=== PATIENT | male | born 1960 | race Caucasian/White ===

== ENCOUNTER 2020-06-01 10:55 | Emergency (ER) | payer BC, SELFPAY ==
--- NOTE | ~2020-06-01 | XR_ITS ---
EXAMINATION: XR hand LT min 3V DATE: 06/01/2020 11:26 INDICATION: Left hand injury. TECHNIQUE: 3 views of left hand were obtained. COMPARISON: Left hand radiographs 08/15/2011 FINDINGS: Bone alignment is normal. There is an old healed fracture of first distal phalanx. There is amputation at the oseas of the third and fourth distal phalanges. There is mild osteoarthritis of se cond, and fifth distal interphalangeal joints. IMPRESSION: 1. 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 Reviewed, dictated and finalized at location B.
[2020-06-01 11:02] VITALS: BP 171/102; PULSE 110; RESP 20; TEMP 36.2; O2SAT 100
[2020-06-01] MEDS: HYDROcodone/acetaminophen (*CRX) 5-325 MG TABLET 1 TAB PO (11:13)
--- NOTE | 2020-06-01 11:21 | ED.UPPEXIN ---
HPI - Extremity Injury (Upper) General Chief Complaint: Extremity Injury, Upper <Swetha Haines PA-C - Last Filed: 06/01/20 15:42> Stated Complaint: finger lac <HINA Lobo Last Filed: 06/01/20 15:42> Time Seen by Provider: 06/01/20 11:07 <Swetha Haines PA-C - Last Filed: 06/01/20 15:42> Source: patient <HINA Lobo Last Filed: 06/01/20 15:42> Mode of arrival: ambulatory <HINA Lobo Last Filed: 06/01/20 15:42> Limitations: no limitations <HINA Lobo Last Filed: 06/01/20 15:42> History of Present Illness HPI narrative: This is a 59-year-old [id number] male that presents to the emergency department for left hand injury sustained just prior to arrival. Reports he was using a table saw and accidentally cut the tip of his left third and fourth fingers off. Reports pain and bleeding to the area. Denies decreased ROM or numbness. <HINA Lobo Last Filed: 06/01/20 15:42> Related Data Allergies/Adverse Reactions: Allergies Allergy/AdvReac Type Severity Reaction Status Date / Time No Known Allergies Allergy Verified 06/01/20 11:05 <Swetha Haines PA-C - Last Filed: 06/01/20 15:42> Review of Systems Review of Systems: Narrative: CONSTITUTIONAL: Denies fever SKIN: Reports laceration MUSCULOSKELETAL: Reports joint pain, and myalgia. NEUROLOGIC: Denies numbness <HINA Lobo Last Filed: 06/01/20 15:42> All systems reviewed & are unremarkable except as noted in HPI and below <HINA Lobo Last Filed: 06/01/20 15:42> [facility] Social History Social History: Social History Smoking status: Never smoker Alcohol intake: current <HINA Lobo Last Filed: 06/01/20 15:42> Exam Narrative: Exam Narrative: GENERAL: Well-appearing, well-nourished, and in mild acute distress due to pain. HEAD: Normocephalic, atraumatic. EYES: EOMI. EXTREMITIES: Normal range of motion. Left third and fourth fingers with partial amputation of the distal phalanx, partial involvement of the nails. Normal sensation SKIN: Warm, dry, no rash. NEURO: No focal deficits. Alert and oriented x3. PSYCH: Normal mood and affect <Swetha Haines PA-C - Last Filed: 06/01/20 15:42> Course JET DYEING MACHINE OPERATOR/PA Physician Supervision Patient was assessed for left hand injury, using a saw and lacerated distal third and fourth phalanxes. Pt hyperventilating at time of assessment. Patient has open tuft injuries to distal rd and 4th phalanxes. Otherwise neurovascularly intact. Patient underwent digital block as well as IV analgesia. Dr. Diaz came to the emergency department and evaluated the patient and recommended approximation of these and follow-up in his office. For this patient encounter, I reviewed the JET DYEING MACHINE OPERATOR or PA documentation, treatment plan, and medical decision making; and I had [id number] time with this patient. <Caitlyn Ellis MD - Last Filed: 06/01/20 15:48> Consultations Consultation #1: Dr. Diaz did come to the ER to check wound. Recommended approximating flaps as well as possible with sutures. <Swetha Haines PA-C - Last Filed: 06/01/20 15:42> Date: 06/01/20 <HINA Lobo Last Filed: 06/01/20 15:42> Time: 15:40 <HINA Lobo Last Filed: 06/01/20 15:42> Vital Signs Vital signs: Vital Signs Temperature 36.2 C L 06/01/20 11:02 Pulse Rate 110 H 06/01/20 11:02 Respiratory Rate 20 06/01/20 11:02 Blood Pressure 171/102 H 06/01/20 11:02 Pulse Oximetry 100 06/01/20 11:02 Temperature 36.2 C L 06/01/20 11:02 Pulse Rate 76 06/01/20 15:20 Respiratory Rate 18 06/01/20 15:20 Blood Pressure 178/85 H 06/01/20 15:20 Pulse Oximetry 98 06/01/20 15:20 <Swetha Haines PA-C - Last Filed: 06/01/20 15:42> Vital Signs Temperature 36.2 C L 06/01/20 11:02 Pulse Rate 110 H 06/01/20 11:02 Respiratory Rate 20 06/01/
[2020-06-01] MEDS: MORPHINE SULFATE (*CRX) 4 MG/ML INJ IV PUSH (11:24)
--- NOTE | 2020-06-01 11:28 | PC.NURSE ---
1120 s/p was using table saw at home, L hand slipped into blade, +L third and fourth finger partial avulsions through the nail, +oozing bleeding, CMS intact and distal pulse present. Dry gauze applied, extremity raised on table. Needs tetanus
[2020-06-01] MEDS: TETANUS,DIPHTHERIA,AC PERTUSSIS ADULT (0.5 ML) BOOSTRIX IM (11:38)
[2020-06-01] MEDS: LIDOCAINE HCL 1% LOCAL INJ 20 ML VIAL INFILTRATE (11:38)
[2020-06-01] MEDS: ceFAZolin SODIUM 1 GM VIAL IM (11:39)
--- NOTE | 2020-06-01 12:15 | PC.NURSE ---
Swetha YOUSIF at bedside for lido injection and wound cleansing. Pt and updated on POC, comforting pt
--- NOTE | 2020-06-01 13:02 | PC.NURSE ---
Dr. Diaz and Swetha YOUSIF previously at bedside, pt reports he feels much more comfortable s/p lido block. Pt and updated on POC. Bleeding controlled
[2020-06-01] MEDS: HYDROmorphone HCL INJ (*CRX) 1 MG/ML SYR 0.5 MG IV PUSH ×2 (13:47→14:07)
--- NOTE | 2020-06-01 14:00 | PC.NURSE ---
ZION Posada at bedside for suturing of L 3rd and 4th finger tips
[2020-06-01] MEDS: BUPIVACAINE HCL 0.25% PF 30 ML VIAL INFILTRATE (14:20)
[2020-06-01 15:20] VITALS: BP 178/85; PULSE 76; RESP 18; O2SAT 98
--- NOTE | 2020-06-01 15:33 | PC.NURSE ---
Pt resting on cart HOB elevated, denies pain, tolerating PO intake. will drive pt home, sts he feels ready to go home
--- NOTE | 2020-06-01 15:45 | PC.NURSE ---
Per ED MD Posada reassess pt in ~20 min as he is feeling woozy
--- NOTE | 2020-06-01 16:38 | PC.NURSE ---
Bleeding to L mid-finger uncontrolled, dripping blood noted to pad and continuing to saturate dressing despite reenforcement. ED PA Swetha aware and states she will reassess.
--- NOTE | 2020-06-01 17:04 | PC.NURSE ---
L 3rd finger dressing reenforced, pt and educated on wound care and how to reenforce dressing, extra supplies given. Pt starting to vomit, per ED PA medicate with Zofran and reassess
[2020-06-01] MEDS: ONDANSETRON INJ 4 MG/2 ML VIAL IV PUSH (17:09)
[2020-06-01 17:48] VITALS: BP 152/90; PULSE 66; RESP 16; O2SAT 95
--- NOTE | 2020-06-28 18:56 | P.CONS_ITS ---
HPI Data of Consult Date/Time: 06/28/20 18:56 Primary Care Provider: Mak Edwards Consult Narrative Narrative: Portillo Jose is a 59 year old male To the ER from work where he had sustained table saw injury to the left 3rd and 4th finger tips. I was asked by Swetha the PA working the ER to evaluate his hand condition. I was in the middle of an operative day and went to the ER to examine the patient's hand and to review his x-rays. I also reviewed his past medical history. the nail plate in bed in each finger was involved in this injury and partly missing the distal tuft on the middle finger was amputated at an angle. On both digits viable pad skin remained attached with adequate vascularity. I asked Swetha to please repair the flaps back to the fingers is closed eliane tomic position as she could do. I told her and the patient and his that I would follow him in my office. PMFSH Social History Social History Smoking status: Never smoker Alcohol intake: current Meds Home Medications and Allergies Home Medications Medication Instructions Recorded Confirmed Type cephalexin 500 mg PO Q8H 7 Days #21 cap 06/01/20 Rx hydrocodone-acetaminophen 1 tablet PO Q6H PRN #20 tablet 06/01/20 Rx Allergies Allergy/AdvReac Type Severity Reaction Status Date / Time No Known Allergies Allergy Verified 06/01/20 11:05
== END 2020-06-01 18:12 | disposition home or self-care (01) ==
PROVIDERS: Emergency Provider Emergency Medicine
DX: S68.625A Partial traumatic transphalangeal amputation of left ring finger, initial encounter (principal); S68.623A Partial traumatic transphalangeal amputation of left middle finger, initial encounter; W31.2XXA Contact with powered woodworking and forming machines, initial encounter; Z23 Encounter for immunization
CPT/HCPCS: 12002; 73130; 90471; 90715; 99283; A9270; J0690; J1170; J2270; J2405

== ENCOUNTER 2020-11-15 13:07 | Outpatient (CLI) | payer BC, SELFPAY ==
--- NOTE | 2020-11-15 | ECG_ITS ---
Measurements Intervals [place] Rate: 66 P: 9 WA: 139 QRS: 42 QRSD: 90 T: 53 QT: 372 QTc: 392 Interpretive Statements SINUS RHYTHM BASELINE WANDER- II, III, AVF, V4-V6 NORMAL ECG Electronically Signed On 11-15-2020 14:26:13 CDT by Holland Mckeon D.O.
[2020-11-15 13:56] LABS: Hematocrit 45.2 % (42.0-52.0); Hemoglobin 15.3 g/dL (14.0-18.0); Mean Corpuscular HGB Conc 33.8 g/dl (32-36); Mean Corpuscular Hemoglobin 29.9 pg (26-34); Mean Corpuscular Volume 88.5 fl (80-100); Platelet Count Result 183 k/mm3 (150-375); Red Blood Count 5.11 M/mm3 (4.6-6.20); White Blood Count 6.2 K/mm3 (4.5-10.0)
[2020-11-15 14:08] LABS: Anion Gap 7 mmol/L (8-16); Blood Urea Nitrogen 14 mg/dL (9-20); Calcium 9.6 mg/dL (8.4-10.2); Carbon Dioxide 31 mmol/L (22-30); Chloride 104 mmol/L (98-107); Estimated Glomerular Filt Rate > 60; Glucose 126 mg/dL (65-110); Potassium 4.5 mmol/L (3.4-5.0); Sodium 142 mmol/L (137-145)
== END 2020-11-15 13:08 | disposition home or self-care (01) ==
DX: Z01.812 Encounter for preprocedural laboratory examination (principal)
CPT/HCPCS: 36415; 80048; 85027; 93005

== ENCOUNTER → 2021-05-04 13:55 | Outpatient (CLI) | payer BC, SELFPAY ==
--- NOTE | ~2021-05-04 | MR_ITS ---
EXAMINATION: MR foot RT wo con DATE: 05/04/2021 14:50 INDICATION: Spontaneous rupture of the flexor tendons with pain in the region of the plantar aspect o f the head of the first metatarsal TECHNIQUE: Magnetic resonance imaging (MRI) of the right fore/mid foot was performed without intraven ous contrast. Sequences included sagittal T1-weighted FSE, sagittal fluid sensitive FSE STIR, coronal PD-weighted FS FSE, coronal T1-weighted FSE, axial PD-weighted FS FSE, and axial PD-weighted FSE. A marker was placed at the site of maximal pain. COMPARISON: None FINDINGS: Bone alignment is normal. No fracture or pathologic marrow replacing process. Mild to moderate osteoa rthritis at the first metatarsophalangeal joint with nonuniform partial-thickness cartilage loss and small marginal osteophytes. There is small region of likely subarticular edema along the head of the first metatarsal suggesting overlying high-grade chondromalacia. Additional minimal to mild osteoarth ritis at several of the tarsal metatarsal and interphalangeal joints with second small focus of subar ticular edema at the head of the first proximal phalanx. No joint effusions, tenosynovitis, bursitis or other abnormal fluid collections. The Lisfranc ligament complex as well as the collateral ligament complex at the metatarsophalangeal and interphalangeal joints are normal. The flexor and extensor te ndons as well as the visualized intrinsic musculature of the foot is normal. Nonspecific 7 mm T2 hype rintense nodule with lobular margins in the subcutaneous fat plantar to the base of the fourth metata rsal. IMPRESSION: 1. 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 2. Nonspecific 7 mm subcutaneous nodule plantar to the base of the fourth metatarsal which could be e ither solid or cystic with differential including neoplasm, vascular malformation and epidermal inclu patricia cyst. Reviewed, dictated and finalized at location A. IMPRESSION: 1. 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 2. Nonspecific 7 mm subcutaneous nodule plantar to the base of the fourth metat arsal which could be either solid or cystic with differential including neoplas m, vascular malformation and epidermal inclusion cyst.
== END ==
PROVIDERS: PCP Family Medicine; Visit Provider Podiatrist Foot & Ankle Surgery
DX: S96.011A Strain of muscle and tendon of long flexor muscle of toe at ankle and foot level, right foot, initial encounter (principal); M19.071 Primary osteoarthritis, right ankle and foot
CPT/HCPCS: 73718

== ENCOUNTER 2023-10-31 14:00 | Outpatient (CLI) | payer BC, SELFPAY ==
--- NOTE | 2023-10-31 | ECG_ITS ---
Test Date: 2023-10-31 14:02:06 Measurements Intervals [place] Rate: 65 P: 7 WA: 152 QRS: 26 QRSD: 81 T: 42 QT: 375 QTc: 392 Interpretive Statements SINUS RHYTHM NORMAL ECG No previous ECG available for comparison Electronically Signed On 10-31-2023 15:12:21 CDT by Holland Mckeon D.O.
== END 2023-10-31 14:01 | disposition home or self-care (01) ==
LOC: ANHCARD 14:36
PROVIDERS: PCP Family Medicine; Visit Provider Podiatrist Foot & Ankle Surgery
DX: Z01.810 Encounter for preprocedural cardiovascular examination (principal)
CPT/HCPCS: 93005

== ENCOUNTER 2024-01-23 01:27 | Day surgery (SDC) | payer BC, SELFPAY ==
[2024-01-09 10:07] VITALS: BMI 27.1
[2024-01-23 07:18] VITALS: BP 137/72; PULSE 66; RESP 20; TEMP 35.9; O2SAT 98
[2024-01-23] MEDS: LACTATED RINGERS 1,000 ML 150 ML IV CONT (07:28)
--- NOTE | 2024-01-23 07:52 | P.PNAN_ITS ---
Anes - Initial Pre Proc Eval Procedure: Operation Date: 01/23/24 08:30 Proposed Procedures p Colonoscopy - Darwin Kim MD Date/Time: 01/23/24 07:52 Surgeon: Darwin Kim MD Pre Op Diagnosis: hx of colon polyps Patient Data Age: 63 Gender: M Height: 1.85 m Weight: 91.7 kg Last Vital Signs Temp 35.9 C L 01/23/24 07:18 Pulse 66 01/23/24 07:18 Resp 20 01/23/24 07:18 BP 137/72 01/23/24 07:18 Pulse Ox 98 01/23/24 07:18 O2 Del Method Room Air 01/23/24 07:18 Allergies Allergy/AdvReac Type Severity Reaction Status Date / Time No Known Allergies Allergy Verified 01/23/24 07:14 Home Medications ?Medication ?Instructions ?Recorded ?Confirmed ?Type tadalafil 5 mg tablet (Cialis) 5 mg PO DAILY #90 tabs 10/31/23 01/23/24 Rx aspirin 81 mg tablet 81 mg PO DAILY 01/09/24 01/23/24 History Patient hx anesthesia problems: post op nausea/vomiting Family hx anesthesia problems: none Results Review: All pre-operative results and documents have been reviewed as part of the pre- operative evaluation. 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 Hx of thumb surgery s/p injury History of foot surgery L s/p injury History of knee replacement left Social History Social History Smoking status: Never smoker Alcohol intake: current Drinks per week: 8 Substance use: never Substance use type: does not use Living arrangements: with family Additional living arrangements comments: with sp Occupation/Education: occupation Gender identity (if verbalized by the patient): Male Sexual Orientation (if Verbalized by the Patient): Straight or Heterosexual Anes - Eval Final PreProcedure Day of Procedure 01/23/24 07:52 Patient weight: overweight Heart: regular rate and rhythm Lungs: clear to auscultation Airway: Mallampati scale class II Neurological: alert and oriented Last oral intake: >/= 8 hours ASA classification: III Emergent: no Anesthetic plan: proceed Anesthesia type and monitoring: general GIVS and standard monitoring Results Review: All pre-operative results and documents have been reviewed as part of the pre- operative evaluation. Informed Consent: The patient's anesthetic plan and its attendant risks and benefits were discussed with the patient/family/POA. Questions were solicited and answers provided to the satisfaction of the patient/family/POA.
--- NOTE | 2024-01-23 08:35 | PM.IMHP ---
H&P: HPI History of Present Illness Date/Time: 01/23/24 08:35 Chief Complaint: History of colon polyps Narrative: The patient has a history of colonic polyps, the last colonoscopy was 6 years ago. The patient is asymptomatic from a GI standpoint. 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 Hx of thumb surgery s/p injury History of foot surgery L s/p injury History of knee replacement left Social History Social History Smoking status: Never smoker Alcohol intake: current Drinks per week: 8 Substance use: never Substance use type: does not use Living arrangements: with family Additional living arrangements comments: with sp Occupation/Education: occupation Gender identity (if verbalized by the patient): Male Sexual Orientation (if Verbalized by the Patient): Straight or Heterosexual Meds Home Medications and Allergies Home Medications ?Medication ?Instructions ?Recorded ?Confirmed ?Type tadalafil 5 mg tablet (Cialis) 5 mg PO DAILY #90 tabs 10/31/23 01/23/24 Rx aspirin 81 mg tablet 81 mg PO DAILY 01/09/24 01/23/24 History Allergies Allergy/AdvReac Type Severity Reaction Status Date / Time No Known Allergies Allergy Verified 01/23/24 07:14 Vital Signs Vital Signs - 24 hr 01/23/24 07:18 Temperature 96.6 F L Pulse Rate 66 Respiratory Rate 20 Blood Pressure 137/72 Pulse Oximetry 98 Oxygen Delivery Room Air Exam Const: General: cooperative and healthy appearing Resp: Effort & Inspection: normal respiratory effort and able to speak in complete sentences Auscultation: clear to auscultation bilaterally Cardio: Rate: regular rate Rhythm: regular rhythm GI: Inspection: normal to inspection GI Palp: No No hepatosplenomegaly present Auscultation: normal bowel sounds Rectal Exam: deferred Skin: General skin exam: normal color Psych: Appearance: grossly normal Mental Status: mental status grossly normal Assessment and Plan Assessment and plan (1) History of adenomatous polyp of colon: Code(s): Z86.010 - Personal history of colon polyps Status: Acute Assessment and Plan: The patient is deemed a good candidate for the procedure. Consent signed. Will proceed.
[2024-01-23 09:02] VITALS: BP 108/63; PULSE 68; RESP 21; O2SAT 99
[2024-01-23 09:12] VITALS: BP 119/82; PULSE 79; RESP 15; O2SAT 99
[2024-01-23 09:22] VITALS: BP 141/86; PULSE 71; RESP 19; O2SAT 100
== END 2024-01-23 09:32 | disposition home or self-care (01) ==
PROVIDERS: PCP Family Medicine; Referring Provider Family Medicine; Visit Provider Internal Medicine Gastroenterology
PROC: 0DJD8ZZ Inspection of Lower Intestinal Tract, Via Natural or Artificial Opening Endoscopic (ICD-10-PCS; CPT 45378; principal; 2024-01-23 08:30)
DX: Z12.11 Encounter for screening for malignant neoplasm of colon (principal); D12.2 Benign neoplasm of ascending colon; N52.9 Male erectile dysfunction, unspecified; Z79.82 Long term (current) use of aspirin; Z98.890 Other specified postprocedural states; Z86.718 Personal history of other venous thrombosis and embolism
CPT/HCPCS: 45385; 88305; J2704; J7120